=== PATIENT | female | born 1960 | race African-American/Black ===

== ENCOUNTER 2024-12-21 12:58 | Emergency (ER) | payer MEDICAID | END 2024-12-21 13:59 | disposition home or self-care (01) | LOC: NAV ERS 12:58 | DX: T82.848A Pain due to vascular prosthetic devices, implants and grafts, initial encounter (principal); I10 Essential (primary) hypertension; E11.9 Type 2 diabetes mellitus without complications; Z87.891 Personal history of nicotine dependence | CPT/HCPCS: 99283 ==